=== PATIENT | male | born 1950 | race Caucasian/White ===

== ENCOUNTER 2020-07-17 07:06 | Outpatient (CLI) | payer MEDICARE, OTHER ==
--- NOTE | 2020-07-17 08:03 | ULT ---
Ultrasound pelvis: 07/17/2020 HISTORY: 69-year-old male with abdominal pain FINDINGS: Prevoid bladder volume: 205 mL Post void volume: 225 mL, larger than the prevoid volume. Nonspecific minimal mural thickening. IMPRESSION: Urinary retention
--- NOTE | 2020-07-17 08:06 | ULT ---
ULTRASOUND ABDOMEN: HISTORY: Renal mass on CT. FINDINGS: The liver is enlarged measuring about 21 cm in length. No focal mass or biliary ductal dilatation is seen. The spleen, gallbladder, and right kidney appear normal. There is a 2 cm cyst arising from t he superior pole of the left kidney. The common duct measured 4 mm in diameter. No free fluid is se en. The visualized portions of the aorta and IVC are unremarkable. IMPRESSION: 1. Hepatomegaly. 2. Left renal cyst. POS: OFF
== END 2020-07-17 07:07 | disposition home or self-care (01) ==
LOC: BICULT 07:06
PROVIDERS: ATTEND Specialist
DX: R19.09 Other intra-abdominal and pelvic swelling, mass and lump (principal); R16.0 Hepatomegaly, not elsewhere classified; N28.1 Cyst of kidney, acquired; R33.9 Retention of urine, unspecified
CPT/HCPCS: 76856; 93975

== ENCOUNTER 2023-07-01 09:33 | Inpatient (IN) | payer MEDICARE ==
[2023-07-01] MEDS ORDERED: Nitroglycerin 2% Ointment 1 INCH/1 GM Packet ONE (10:15)
[2023-07-01 10:19] LABS: #Eosinphils 0.1 thou/uL (0.0-0.7); #Monocytes 0.6 thou/uL (0.11-0.59); #Neutrophils 3.6 thou/uL (1.40-6.50); %Basophils 0.4 % (0.0-1.0); %Eosinophils 1.7 % (0.0-10.0); %Lymphocytes 18.5 % (21.0-51.0); %Monocytes 11.1 % (0.0-10.0); %Neutrophils 67.9 % (42.0-75.0); Hematocrit 30.2 % (42.0-52.0); Hemoglobin 9.1 g/dL (14.0-18.0); Mean Corpuscular HGB CONC 30.1 g/dL (32.0-36.0); Mean Corpuscular Hemoglobin 24.9 pg (27.0-31.0); Mean Corpuscular Volume 82.5 fl (78.0-98.0); Mean Platelet Volume 10.3 fL (7.4-10.4); Platelet Count 228 10x3/uL (130-400); RBC Distribution Width 15.2 % (11.5-14.5); Red Blood Cell (RBC) Count 3.66 mill/uL (4.70-6.10); White Blood Cell (WBC) Count 5.2 10x3/uL (4.8-10.8)
[2023-07-01 10:44] LABS: ALT (SGPT) 49 U/L (8-55); AST (SGOT) 72 U/L (5-34); Albumin 2.9 g/dL (3.4-4.8); Alkaline Phosphatase 79 U/L (40-110); Anion Gap 9 mmol/L (10-20); BUN (Urea Nitrogen) 13 mg/dL (8.4-25.7); Bilirubin, Total 0.3 mg/dL (0.2-1.2); Calc. Creatinine Clearance 0 mL/min (70-130); Calcium 8.2 mg/dL (7.8-10.44); Carbon Dioxide 26 mmol/L (23-31); Chloride 107 mmol/L (98-107); Estimated GFR 87; Globulin 3.5 g/dL (2.4-3.5); Glucose 162 mg/dL (83-110); Potassium 3.4 mmol/L (3.5-5.1); Protein, Total 6.4 g/dL (5.8-8.1); Sodium 139 mmol/L (136-145)
[2023-07-01] MEDS ORDERED: Furosemide 40 MG/4 ML VIAL ONE (11:00)
[2023-07-01] MEDS ORDERED: Iopamidol-370 76% 500 ML MDV (1 ML CHARGE) ONE (11:10)
[2023-07-01] MEDS ORDERED: Ondansetron PF 4 MG/2 ML Vial IVP PRN (13:15)
[2023-07-01] MEDS ORDERED: Acetaminophen 325 MG TAB PO PRN (13:15)
[2023-07-01] MEDS ORDERED: Ondansetron ODT 4 MG TAB SL PRN (13:15)
[2023-07-01 13:56] VITALS: BMI 39.9
[2023-07-01] MEDS ORDERED: Zolpidem Tartrate 5 MG TAB PO PRN (14:03)
[2023-07-01] MEDS ORDERED: Senokot S 8.6-50 MG TAB PO PRN (14:03)
[2023-07-01] MEDS ORDERED: Furosemide 40 MG/4 ML VIAL SLOW IVP SCH ×2 (14:10→17:15)
[2023-07-01] MEDS: Potassium Chloride 20 MEQ TAB PO SCH (15:17)
[2023-07-01] MEDS: Carvedilol 6.25 MG TAB PO SCH (15:18)
[2023-07-01] MEDS: metFORMIN 500 MG TAB PO SCH (15:18)
[2023-07-01 15:52] LABS: Critical Call Chem Troponin I RESULT DECREASING; Troponin I 0.253 ng/mL (< 0.028)
[2023-07-01] MEDS ORDERED: Spironolactone 25 MG TAB PO SCH (17:15)
[2023-07-01 18:54] LABS: Troponin I 0.178 ng/mL (< 0.028)
[2023-07-01] MEDS: Rosuvastatin 20 MG TAB PO SCH (21:28)
[2023-07-01] MEDS: Tamsulosin HCl 0.4 MG CAP PO SCH (21:28)
[2023-07-02 04:47] LABS: #Eosinphils 0.1 thou/uL (0.0-0.7); #Monocytes 0.6 thou/uL (0.11-0.59); #Neutrophils 2.6 thou/uL (1.40-6.50); %Basophils 0.5 % (0.0-1.0); %Eosinophils 2.1 % (0.0-10.0); %Lymphocytes 24.7 % (21.0-51.0); %Neutrophils 59.5 % (42.0-75.0); Hematocrit 27.2 % (42.0-52.0); Hemoglobin 7.8 g/dL (14.0-18.0); Mean Corpuscular HGB CONC 28.7 g/dL (32.0-36.0); Mean Corpuscular Hemoglobin 24.5 pg (27.0-31.0); Mean Platelet Volume 10.1 fL (7.4-10.4); Platelet Count 213 10x3/uL (130-400); RBC Distribution Width 15.2 % (11.5-14.5); Red Blood Cell (RBC) Count 3.18 mill/uL (4.70-6.10); White Blood Cell (WBC) Count 4.4 10x3/uL (4.8-10.8)
[2023-07-02 04:56] LABS: Mean Corpuscular Volume 85.5 fl (78.0-98.0)
[2023-07-02 04:57] LABS: Hemoglobin A1c 7.7 % (4.0-6.0)
[2023-07-02 05:13] LABS: Anion Gap 13 mmol/L (10-20); BUN (Urea Nitrogen) 16 mg/dL (8.4-25.7); Calc. Creatinine Clearance 135 mL/min (70-130); Calcium 8.3 mg/dL (7.8-10.44); Carbon Dioxide 26 mmol/L (23-31); Cardiac Risk 4.4 (Less than 4.5); Chloride 106 mmol/L (98-107); Cholesterol 120 mg/dl (< 200 Desired); Estimated GFR 75; Glucose 163 mg/dL (83-110); HDL Cholesterol 27 mg/dL (>60 Neg Risk); Iron 39 ug/dL (65-175); Iron Binding Capacity, Total 403 mcg/dL (261-462); LDL Cholesterol, Calculated 50 mg/dL; Potassium 3.5 mmol/L (3.5-5.1); Sodium 141 mmol/L (136-145); Triglycerides 216 mg/dL (Less than 150)
[2023-07-02 05:32] LABS: Ferritin 14.82 ng/mL (22-322); Thyroid Stimulating Hormone 3.1045 uIU/mL (0.35-4.94)
[2023-07-02] MEDS ORDERED: Furosemide 40 MG/4 ML VIAL SLOW IVP SCH ×2 (06:00→08:05)
[2023-07-02] MEDS ORDERED: Spironolactone 25 MG TAB PO SCH (08:00)
[2023-07-02] MEDS ORDERED: Carvedilol 6.25 MG TAB PO SCH (08:04)
[2023-07-02] MEDS ORDERED: Furosemide 100 MG/10 ML VIAL FS SCH (08:15)
[2023-07-02] MEDS ORDERED: Pioglitazone HCl 45 MG TAB PO SCH (09:00)
[2023-07-02] MEDS ORDERED: Lisinopril 20 MG TAB PO SCH ×2 (09:00→21:00)
[2023-07-02] MEDS: metFORMIN 500 MG TAB PO SCH ×2 (09:36→17:45)
[2023-07-02] MEDS: Carvedilol 25 MG TAB PO SCH ×2 (09:37→17:45)
[2023-07-02] MEDS: Empagliflozin 10 MG TAB PO SCH (09:37)
[2023-07-02] MEDS: Potassium Chloride 20 MEQ TAB PO SCH ×2 (09:37→17:45)
[2023-07-02] MEDS: Aspirin 81 mg Enteric Coated Tablet PO SCH (09:37)
[2023-07-02] MEDS: Carvedilol 6.25 MG TAB PO SCH (09:47)
[2023-07-02] MEDS ORDERED: cloNIDine 0.1 MG TAB PO SCH (11:45)
[2023-07-02] MEDS: Furosemide 100 MG/10 ML VIAL FS SCH (13:22)
[2023-07-02] MEDS ORDERED: Sacubitril 24MG/Valsartan 26 MG TAB PO SCH (21:00)
[2023-07-02] MEDS: Tamsulosin HCl 0.4 MG CAP PO SCH (21:22)
[2023-07-02] MEDS: Rosuvastatin 20 MG TAB PO SCH (21:22)
[2023-07-02] MEDS: cloNIDine 0.1 MG TAB PO SCH (21:23)
[2023-07-03] MEDS: Furosemide 100 MG/10 ML VIAL FS SCH ×2 (05:25→14:29)
[2023-07-03 05:42] LABS: #Eosinphils 0.1 thou/uL (0.0-0.7); #Monocytes 0.6 thou/uL (0.11-0.59); #Neutrophils 2.6 thou/uL (1.40-6.50); %Basophils 0.4 % (0.0-1.0); %Eosinophils 2.4 % (0.0-10.0); %Lymphocytes 26.3 % (21.0-51.0); %Monocytes 14.2 % (0.0-10.0); %Neutrophils 56.5 % (42.0-75.0); Hemoglobin 8.4 g/dL (14.0-18.0); Mean Corpuscular Hemoglobin 24.3 pg (27.0-31.0); Mean Corpuscular Volume 84.1 fl (78.0-98.0); Mean Platelet Volume 10.3 fL (7.4-10.4); Platelet Count 219 10x3/uL (130-400); RBC Distribution Width 15.2 % (11.5-14.5); Red Blood Cell (RBC) Count 3.45 mill/uL (4.70-6.10); White Blood Cell (WBC) Count 4.5 10x3/uL (4.8-10.8)
[2023-07-03 06:05] LABS: Anion Gap 13 mmol/L (10-20); BUN (Urea Nitrogen) 16 mg/dL (8.4-25.7); Calc. Creatinine Clearance 138 mL/min (70-130); Calcium 8.5 mg/dL (7.8-10.44); Carbon Dioxide 26 mmol/L (23-31); Chloride 103 mmol/L (98-107); Estimated GFR 80; Glucose 157 mg/dL (83-110); Potassium 3.2 mmol/L (3.5-5.1); Sodium 139 mmol/L (136-145)
[2023-07-03] MEDS ORDERED: Metolazone 5 MG TAB PO SCH (08:15)
[2023-07-03] MEDS: Potassium Chloride 20 MEQ TAB PO SCH ×2 (10:22→16:46)
[2023-07-03] MEDS: metFORMIN 500 MG TAB PO SCH ×2 (10:22→16:46)
[2023-07-03] MEDS: Carvedilol 25 MG TAB PO SCH ×2 (10:22→16:46)
[2023-07-03] MEDS: Spironolactone 25 MG TAB PO SCH (10:22)
[2023-07-03] MEDS: Aspirin 81 mg Enteric Coated Tablet PO SCH (10:23)
[2023-07-03] MEDS: cloNIDine 0.1 MG TAB PO SCH ×2 (10:23→21:30)
[2023-07-03] MEDS: Empagliflozin 10 MG TAB PO SCH (10:23)
[2023-07-03] MEDS: Lisinopril 20 MG TAB PO SCH ×2 (10:24→21:30)
[2023-07-03 15:33] LABS: #Eosinphils 0.1 thou/uL (0.0-0.7); #Monocytes 0.5 thou/uL (0.11-0.59); #Neutrophils 2.9 thou/uL (1.40-6.50); %Basophils 0.4 % (0.0-1.0); %Eosinophils 1.7 % (0.0-10.0); %Lymphocytes 23.8 % (21.0-51.0); %Monocytes 11.7 % (0.0-10.0); Hematocrit 29.7 % (42.0-52.0); Hemoglobin 8.7 g/dL (14.0-18.0); Mean Corpuscular HGB CONC 29.3 g/dL (32.0-36.0); Mean Corpuscular Hemoglobin 24.8 pg (27.0-31.0); Mean Corpuscular Volume 84.6 fl (78.0-98.0); Mean Platelet Volume 10.5 fL (7.4-10.4); Platelet Count 210 10x3/uL (130-400); RBC Distribution Width 15.4 % (11.5-14.5); Red Blood Cell (RBC) Count 3.51 mill/uL (4.70-6.10); White Blood Cell (WBC) Count 4.6 10x3/uL (4.8-10.8)
[2023-07-03] MEDS: Rosuvastatin 20 MG TAB PO SCH (21:30)
[2023-07-03] MEDS: Tamsulosin HCl 0.4 MG CAP PO SCH (21:30)
[2023-07-04] MEDS: Furosemide 100 MG/10 ML VIAL FS SCH ×2 (05:47→13:20)
[2023-07-04] MEDS: Insulin Regular 300 UNITS/3 ML VIAL SC PRN ×2 (05:58→13:20)
[2023-07-04 06:36] LABS: Anion Gap 10 mmol/L (10-20); BUN (Urea Nitrogen) 21 mg/dL (8.4-25.7); Calc. Creatinine Clearance 118 mL/min (70-130); Calcium 8.9 mg/dL (7.8-10.44); Carbon Dioxide 29 mmol/L (23-31); Chloride 102 mmol/L (98-107); Estimated GFR 67; Glucose 180 mg/dL (83-110); Potassium 3.3 mmol/L (3.5-5.1); Sodium 138 mmol/L (136-145)
[2023-07-04] MEDS: Lisinopril 20 MG TAB PO SCH ×2 (09:35→21:01)
[2023-07-04] MEDS: Potassium Chloride 20 MEQ TAB PO SCH ×2 (09:36→18:01)
[2023-07-04] MEDS: Spironolactone 25 MG TAB PO SCH (09:36)
[2023-07-04] MEDS: metFORMIN 500 MG TAB PO SCH ×2 (09:36→18:01)
[2023-07-04] MEDS: cloNIDine 0.1 MG TAB PO SCH ×2 (09:37→21:02)
[2023-07-04] MEDS: Empagliflozin 10 MG TAB PO SCH (09:38)
[2023-07-04] MEDS: Aspirin 81 mg Enteric Coated Tablet PO SCH (09:38)
[2023-07-04] MEDS: Carvedilol 25 MG TAB PO SCH ×2 (09:38→18:02)
[2023-07-04] MEDS: Rosuvastatin 20 MG TAB PO SCH (21:01)
[2023-07-04] MEDS: Tamsulosin HCl 0.4 MG CAP PO SCH (21:02)
[2023-07-05 05:03] LABS: #Eosinphils 0.1 thou/uL (0.0-0.7); #Monocytes 0.7 thou/uL (0.11-0.59); %Basophils 0.6 % (0.0-1.0); %Eosinophils 1.9 % (0.0-10.0); %Lymphocytes 27.5 % (21.0-51.0); %Monocytes 13.1 % (0.0-10.0); %Neutrophils 56.5 % (42.0-75.0); Hematocrit 28.8 % (42.0-52.0); Hemoglobin 8.4 g/dL (14.0-18.0); Mean Corpuscular HGB CONC 29.2 g/dL (32.0-36.0); Mean Corpuscular Hemoglobin 24.6 pg (27.0-31.0); Mean Corpuscular Volume 84.5 fl (78.0-98.0); Platelet Count 217 10x3/uL (130-400); RBC Distribution Width 15.5 % (11.5-14.5); Red Blood Cell (RBC) Count 3.41 mill/uL (4.70-6.10); White Blood Cell (WBC) Count 5.3 10x3/uL (4.8-10.8)
[2023-07-05] MEDS: Furosemide 100 MG/10 ML VIAL FS SCH (05:30)
[2023-07-05 05:36] LABS: Anion Gap 14 mmol/L (10-20); BUN (Urea Nitrogen) 26 mg/dL (8.4-25.7); Calc. Creatinine Clearance 98 mL/min (70-130); Calcium 8.9 mg/dL (7.8-10.44); Carbon Dioxide 29 mmol/L (23-31); Chloride 99 mmol/L (98-107); Estimated GFR 55; Glucose 192 mg/dL (83-110); Potassium 3.7 mmol/L (3.5-5.1); Sodium 138 mmol/L (136-145)
[2023-07-05 06:03] VITALS: TEMP 97.5
[2023-07-05] MEDS: Insulin Regular 300 UNITS/3 ML VIAL SC PRN ×2 (06:52→13:28)
[2023-07-05] MEDS ORDERED: Furosemide 40 MG TAB PO SCH (07:30)
[2023-07-05] MEDS ORDERED: Lisinopril 20 MG TAB PO SCH (09:00)
[2023-07-05] MEDS: Carvedilol 25 MG TAB PO SCH (09:45)
[2023-07-05] MEDS: metFORMIN 500 MG TAB PO SCH (09:45)
[2023-07-05] MEDS: Spironolactone 25 MG TAB PO SCH (09:45)
[2023-07-05] MEDS: Potassium Chloride 20 MEQ TAB PO SCH (09:46)
[2023-07-05] MEDS: Aspirin 81 mg Enteric Coated Tablet PO SCH (09:48)
[2023-07-05] MEDS: Empagliflozin 10 MG TAB PO SCH (09:48)
[2023-07-05] MEDS: cloNIDine 0.1 MG TAB PO SCH (09:48)
[2023-07-05 12:45] VITALS: BP 148/67
== END 2023-07-05 14:16 | disposition home or self-care (01) | DRG 280 ==
LOC: ERS 09:33 → 2NO 11:32
PROVIDERS: ADMIT Specialist; ATTEND Specialist
DX: I11.0 Hypertensive heart disease with heart failure (principal); I50.33 Acute on chronic diastolic (congestive) heart failure; I21.A1 Myocardial infarction type 2; I25.10 Atherosclerotic heart disease of native coronary artery without angina pectoris; E11.9 Type 2 diabetes mellitus without complications; E66.01 Morbid (severe) obesity due to excess calories; D64.9 Anemia, unspecified; E78.5 Hyperlipidemia, unspecified; I42.9 Cardiomyopathy, unspecified; I50.9 Heart failure, unspecified; Z95.5 Presence of coronary angioplasty implant and graft; Z98.890 Other specified postprocedural states; I25.2 Old myocardial infarction
CPT/HCPCS: 36415; 36416; 71045; 71275; 76870; 80048; 80053; 80061; 82728; 83036; 83540; 83550; 83880; 84443; 84484; 85025; 85379; 93005; 93306; 93976; 96372; 96374; J1650; J1815; J1940; Q9967

== ENCOUNTER 2023-08-01 09:19 | Emergency (ER) | payer MEDICARE ==
[2023-08-01 09:59] LABS: #Eosinphils 0.2 thou/uL (0.0-0.7); #Monocytes 0.7 thou/uL (0.11-0.59); #Neutrophils 4.7 thou/uL (1.40-6.50); %Basophils 0.1 % (0.0-1.0); %Eosinophils 2.6 % (0.0-10.0); %Lymphocytes 19.1 % (21.0-51.0); %Monocytes 9.7 % (0.0-10.0); %Neutrophils 68.2 % (42.0-75.0); Hematocrit 28.7 % (42.0-52.0); Hemoglobin 8.5 g/dL (14.0-18.0); Mean Corpuscular HGB CONC 29.6 g/dL (32.0-36.0); Mean Corpuscular Hemoglobin 24.8 pg (27.0-31.0); Mean Corpuscular Volume 83.7 fl (78.0-98.0); Mean Platelet Volume 10.2 fL (7.4-10.4); Platelet Count 214 10x3/uL (130-400); RBC Distribution Width 17.7 % (11.5-14.5); Red Blood Cell (RBC) Count 3.43 mill/uL (4.70-6.10); White Blood Cell (WBC) Count 6.8 10x3/uL (4.8-10.8)
[2023-08-01 10:26] LABS: ALT (SGPT) 57 U/L (8-55); AST (SGOT) 47 U/L (5-34); Albumin 3.8 g/dL (3.4-4.8); Alkaline Phosphatase 86 U/L (40-110); Anion Gap 15 mmol/L (10-20); BUN (Urea Nitrogen) 40 mg/dL (8.4-25.7); Bilirubin, Total 0.2 mg/dL (0.2-1.2); Calc. Creatinine Clearance 0 mL/min (70-130); Calcium 9.9 mg/dL (7.8-10.44); Carbon Dioxide 22 mmol/L (23-31); Chloride 103 mmol/L (98-107); Estimated GFR 39; Globulin 3.6 g/dL (2.4-3.5); Glucose 230 mg/dL (83-110); Magnesium 1.9 mg/dL (1.6-2.6); Potassium 5.6 mmol/L (3.5-5.1); Protein, Total 7.4 g/dL (5.8-8.1); Sodium 134 mmol/L (136-145)
== END 2023-08-01 12:21 | disposition home or self-care (01) ==
LOC: ERS 09:19
DX: N17.9 Acute kidney failure, unspecified (principal); E87.5 Hyperkalemia; E11.9 Type 2 diabetes mellitus without complications; E78.5 Hyperlipidemia, unspecified; I11.0 Hypertensive heart disease with heart failure; I50.9 Heart failure, unspecified; I25.10 Atherosclerotic heart disease of native coronary artery without angina pectoris; Z79.84 Long term (current) use of oral hypoglycemic drugs; Z79.82 Long term (current) use of aspirin; Z79.899 Other long term (current) drug therapy
CPT/HCPCS: 36415; 80053; 83735; 85025; 93005; 96360

== ENCOUNTER 2024-10-16 12:46 | Emergency (ER) | payer MEDICARE, OTHER | END 2024-10-16 14:56 | disposition home or self-care (01) | LOC: ERS 12:46 | DX: S92.514A Nondisplaced fracture of proximal phalanx of right lesser toe(s), initial encounter for closed fracture (principal); E11.9 Type 2 diabetes mellitus without complications; I11.0 Hypertensive heart disease with heart failure; I50.9 Heart failure, unspecified; I25.10 Atherosclerotic heart disease of native coronary artery without angina pectoris; I25.2 Old myocardial infarction; Z95.5 Presence of coronary angioplasty implant and graft; W22.8XXA Striking against or struck by other objects, initial encounter | CPT/HCPCS: 99283 ==

== ENCOUNTER 2024-10-24 15:38 | Inpatient (IN) | payer MEDICARE, OTHER ==
[2024-10-24 16:34] LABS: #Basophils Less than 0.03 10x3/uL (0.0-0.2); %Basophils 0.5 % (0.0-1.0); %Eosinophils 1.2 % (0.0-10.0); %Lymphocytes 21.4 % (21.0-51.0); %Monocytes 8.2 % (0.0-10.0); %Neutrophils 68.5 % (42.0-75.0); Hematocrit 36.9 % (42.0-52.0); Hemoglobin 12.3 g/dL (14.0-18.0); Mean Corpuscular HGB CONC 33.3 g/dL (32.0-36.0); Mean Corpuscular Hemoglobin 28.9 pg (27.0-31.0); Mean Corpuscular Volume 86.8 fL (78.0-98.0); Mean Platelet Volume 9.7 fL (7.4-10.4); Platelet Count 162 10x3/uL (130-400); RBC Distribution Width 14.4 % (11.5-14.5); Red Blood Cell (RBC) Count 4.25 mill/uL (4.70-6.10)
[2024-10-24 16:59] LABS: ALT (SGPT) 24 U/L (8-55); AST (SGOT) 31 U/L (5-34); Albumin 2.8 g/dL (3.4-4.8); Alkaline Phosphatase 91 U/L (40-110); Anion Gap 12 mmol/L (10-20); BUN (Urea Nitrogen) 20 mg/dL (8.4-25.7); Bilirubin, Total 0.3 mg/dL (0.2-1.2); Calc. Creatinine Clearance 0 mL/min (70-130); Calcium 9.2 mg/dL (7.8-10.44); Carbon Dioxide 22 mmol/L (23-31); Chloride 107 mmol/L (98-107); Estimated GFR 49; Globulin 3.5 g/dL (2.4-3.5); Glucose 302 mg/dL (83-110); Potassium 3.9 mmol/L (3.5-5.1); Protein, Total 6.3 g/dL (5.8-8.1); Sodium 137 mmol/L (136-145)
[2024-10-24 17:05] LABS: Troponin I Less than 0.010 ng/mL (< 0.028)
[2024-10-24] MEDS ORDERED: hydrALAZINE 20 MG/ML VIAL ONE (17:36)
[2024-10-24] MEDS ORDERED: Insulin Regular, Human 100 UNIT/ML 10 ML VIAL ONE (18:04)
[2024-10-24] MEDS ORDERED: cloNIDine 0.1 MG TAB ONE (20:00)
[2024-10-24] MEDS ORDERED: Ondansetron PF 4 MG/2 ML Vial ONE (20:00)
[2024-10-24 21:43] VITALS: BMI 33.0
[2024-10-24 22:18] LABS: Troponin I 0.012 ng/mL (< 0.028)
[2024-10-24] MEDS ORDERED: Calcium Carbonate 500 MG ChewTAB PO PRN (22:47)
[2024-10-24] MEDS ORDERED: niCARdipine 25 MG/10 ML SDV ONE (22:52)
[2024-10-24] MEDS: niCARdipine 25 MG in Sodium Chloride 0.9% 250 ML 250 ML IVPB SCH (23:05)
[2024-10-24] MEDS ORDERED: Dextrose 50% Abboject 50 ML SYRINGE SLOW IVP PRN (23:35)
[2024-10-24] MEDS ORDERED: Insulin Lispro 100 UNIT/ML 10 ML VIAL SC PRN (23:35)
[2024-10-24] MEDS ORDERED: Dextrose 5% in Water 1,000 ML IV PRN (23:35)
[2024-10-24] MEDS ORDERED: Glucagon 1 MG/ML KIT IM PRN (23:35)
[2024-10-25] MEDS: Acetaminophen 325 MG TAB PO SCH
[2024-10-25 01:27] LABS: Troponin I 0.026 ng/mL (< 0.028)
[2024-10-25] MEDS ORDERED: niCARdipine 25 MG/10 ML SDV ONE ×5 (01:34→14:51)
[2024-10-25 04:35] LABS: #Basophils Less than 0.03 10x3/uL (0.0-0.2); #Eosinophils Less than 0.03 10x3/uL (0.0-0.7); %Basophils 0.3 % (0.0-1.0); %Eosinophils 0.2 % (0.0-10.0); %Lymphocytes 12.3 % (21.0-51.0); %Monocytes 6.3 % (0.0-10.0); %Neutrophils 80.6 % (42.0-75.0); Hematocrit 37.8 % (42.0-52.0); Hemoglobin 12.6 g/dL (14.0-18.0); Mean Corpuscular HGB CONC 33.3 g/dL (32.0-36.0); Mean Corpuscular Hemoglobin 28.8 pg (27.0-31.0); Mean Corpuscular Volume 86.3 fL (78.0-98.0); Mean Platelet Volume 10.4 fL (7.4-10.4); Platelet Count 174 10x3/uL (130-400); RBC Distribution Width 14.4 % (11.5-14.5); Red Blood Cell (RBC) Count 4.38 mill/uL (4.70-6.10)
[2024-10-25 04:53] LABS: Anion Gap 14 mmol/L (10-20); BUN (Urea Nitrogen) 20 mg/dL (8.4-25.7); Calc. Creatinine Clearance 69 mL/min (70-130); Carbon Dioxide 23 mmol/L (23-31); Chloride 109 mmol/L (98-107); Estimated GFR 43; Glucose 191 mg/dL (83-110); Potassium 3.8 mmol/L (3.5-5.1); Sodium 142 mmol/L (136-145)
[2024-10-25] MEDS ORDERED: Ondansetron PF 4 MG/2 ML Vial ONE (05:35)
[2024-10-25] MEDS: Ondansetron PF 4 MG/2 ML Vial IVP PRN (05:42)
[2024-10-25] MEDS ORDERED: Acetaminophen 325 MG TAB ONE ×3 (05:52→18:39)
[2024-10-25] MEDS: Acetaminophen 650 MG Suppository PR PRN (06:08)
[2024-10-25] MEDS ORDERED: Lisinopril 20 MG TAB ONE (09:35)
[2024-10-25] MEDS ORDERED: Clopidogrel Bisulfate 75 MG TAB ONE ×2 (09:35→09:36)
[2024-10-25] MEDS ORDERED: cloNIDine 0.1 MG TAB ONE (09:35)
[2024-10-25] MEDS ORDERED: Famotidine 20 MG TAB ONE (09:35)
[2024-10-25] MEDS ORDERED: Carvedilol 25 MG TAB ONE ×2 (09:35→17:06)
[2024-10-25] MEDS ORDERED: Famotidine/PF 20 mg/2ml Vial ONE (09:36)
[2024-10-25] MEDS: Carvedilol 25 MG TAB PO SCH (09:39)
[2024-10-25] MEDS: cloNIDine 0.2 MG TAB PO SCH (09:40)
[2024-10-25] MEDS: Clopidogrel Bisulfate 75 MG TAB PO SCH (09:41)
[2024-10-25] MEDS: Famotidine 20 MG TAB PO SCH (09:41)
[2024-10-25] MEDS: Famotidine/PF 20 mg/2ml Vial SLOW IVP SCH (09:41)
[2024-10-25] MEDS: Lisinopril 20 MG TAB PO SCH (09:41)
[2024-10-25] MEDS: Insulin Glargine 30 UNITS/0.3 ML VIAL SC SCH (11:00)
[2024-10-25] MEDS ORDERED: Morphine 2 MG/ML VIAL ONE (11:23)
[2024-10-25] MEDS: Morphine 2 MG/ML VIAL SLOW IVP SCH (11:37)
[2024-10-25] MEDS ORDERED: Morphine 2 MG/ML VIAL SLOW IVP PRN (11:46)
[2024-10-25] MEDS ORDERED: Promethazine HCl 25 MG in Sodium Chloride 0.9% 50 ML IVPB PRN (11:47)
[2024-10-25] MEDS: Spironolactone 25 MG TAB PO SCH (13:06)
[2024-10-25] MEDS: Dapagliflozin Propanediol 10 MG TAB PO SCH (13:06)
[2024-10-25] MEDS ORDERED: Insulin Lispro 100 UNIT/ML 10 ML VIAL ONE (13:14)
[2024-10-25] MEDS: Insulin Lispro 100 UNIT/ML 10 ML VIAL SC PRN (13:18)
[2024-10-25 19:11] LABS: Bacteria/HPF None Seen HPF (None Seen); Bilirubin Negative (Negative); Blood, Urine 1+ (Negative); CAUTI Indications for Culture Dysuria,urgency,freq; Clarity Turbid (Clear); Glucose, Urine (Dipstick) >=1000 mg/dL (Negative); Ketone, Urine Negative (Negative); Leukocyte Negative Leu/uL (Negative); Nitrite Negative (Negative); Protein, Urine (Dipstick) 600 mg/dL (Neg-Trace); RBC/HPF 0-3 HPF (0-3); Specific Gravity, Urine 1.028 (1.002-1.036); Squamous Epithelial 0-3 HPF (0-3); Urobilinogen Normal mg/dL (Less than 2); WBC/HPF 0-3 HPF (0-3)
[2024-10-25 19:13] LABS: Urine Culture Reflex No No
[2024-10-25] MEDS: Rosuvastatin 20 MG TAB PO SCH (22:56)
[2024-10-25] MEDS: Pantoprazole DR 40 MG TAB PO SCH (22:56)
[2024-10-26 04:17] LABS: #Basophils Less than 0.03 10x3/uL (0.0-0.2); %Basophils 0.2 % (0.0-1.0); %Lymphocytes 23.1 % (21.0-51.0); %Monocytes 8.5 % (0.0-10.0); %Neutrophils 66.9 % (42.0-75.0); Hematocrit 31.9 % (42.0-52.0); Hemoglobin 10.7 g/dL (14.0-18.0); Mean Corpuscular HGB CONC 33.5 g/dL (32.0-36.0); Mean Corpuscular Hemoglobin 29.3 pg (27.0-31.0); Mean Corpuscular Volume 87.4 fL (78.0-98.0); Mean Platelet Volume 9.6 fL (7.4-10.4); Platelet Count 144 10x3/uL (130-400); RBC Distribution Width 14.5 % (11.5-14.5); Red Blood Cell (RBC) Count 3.65 mill/uL (4.70-6.10)
[2024-10-26 04:57] LABS: Anion Gap 12 mmol/L (10-20); BUN (Urea Nitrogen) 26 mg/dL (8.4-25.7); Calc. Creatinine Clearance 72 mL/min (70-130); Carbon Dioxide 23 mmol/L (23-31); Chloride 109 mmol/L (98-107); Estimated GFR 45; Glucose 96 mg/dL (83-110); Potassium 3.8 mmol/L (3.5-5.1); Sodium 140 mmol/L (136-145)
[2024-10-26] MEDS: Furosemide 20 MG (2 mL) VIAL SLOW IVP SCH (06:22)
[2024-10-26] MEDS: Lisinopril 20 MG TAB PO SCH (09:20)
[2024-10-27 04:43] LABS: #Basophils Less than 0.03 10x3/uL (0.0-0.2); %Basophils 0.2 % (0.0-1.0); %Eosinophils 0.9 % (0.0-10.0); %Monocytes 10.4 % (0.0-10.0); %Neutrophils 65.9 % (42.0-75.0); Hematocrit 32.8 % (42.0-52.0); Hemoglobin 10.8 g/dL (14.0-18.0); Mean Corpuscular HGB CONC 32.9 g/dL (32.0-36.0); Mean Corpuscular Hemoglobin 28.8 pg (27.0-31.0); Mean Corpuscular Volume 87.5 fL (78.0-98.0); Platelet Count 142 10x3/uL (130-400); RBC Distribution Width 14.4 % (11.5-14.5); Red Blood Cell (RBC) Count 3.75 mill/uL (4.70-6.10)
[2024-10-27 05:08] LABS: Anion Gap 13 mmol/L (10-20); BUN (Urea Nitrogen) 27 mg/dL (8.4-25.7); Calc. Creatinine Clearance 73 mL/min (70-130); Carbon Dioxide 24 mmol/L (23-31); Chloride 105 mmol/L (98-107); Estimated GFR 45; Glucose 119 mg/dL (83-110); Potassium 3.6 mmol/L (3.5-5.1); Sodium 138 mmol/L (136-145)
[2024-10-27] MEDS: Ondansetron ODT 4 MG TAB PO PRN (12:37)
[2024-10-27] MEDS: NIFEdipine XL 30 MG ER.TAB PO SCH (12:37)
[2024-10-27] MEDS: hydrALAZINE 20 MG/ML VIAL SLOW IVP PRN (17:13)
[2024-10-27] MEDS: Lisinopril 20 MG TAB PO SCH (20:43)
[2024-10-28 04:37] LABS: #Basophils Less than 0.03 10x3/uL (0.0-0.2); %Basophils 0.4 % (0.0-1.0); %Eosinophils 1.1 % (0.0-10.0); %Lymphocytes 26.3 % (21.0-51.0); %Monocytes 11.7 % (0.0-10.0); %Neutrophils 60.3 % (42.0-75.0); Hematocrit 34.3 % (42.0-52.0); Hemoglobin 11.4 g/dL (14.0-18.0); Mean Corpuscular HGB CONC 33.2 g/dL (32.0-36.0); Mean Corpuscular Hemoglobin 29.4 pg (27.0-31.0); Mean Corpuscular Volume 88.4 fL (78.0-98.0); Mean Platelet Volume 10.2 fL (7.4-10.4); Platelet Count 157 10x3/uL (130-400); RBC Distribution Width 14.4 % (11.5-14.5); Red Blood Cell (RBC) Count 3.88 mill/uL (4.70-6.10)
[2024-10-28 05:16] LABS: ALT (SGPT) 22 U/L (8-55); AST (SGOT) 31 U/L (5-34); Albumin 2.7 g/dL (3.4-4.8); Alkaline Phosphatase 54 U/L (40-110); Anion Gap 13 mmol/L (10-20); BUN (Urea Nitrogen) 25 mg/dL (8.4-25.7); Bilirubin, Total 0.3 mg/dL (0.2-1.2); Calc. Creatinine Clearance 70 mL/min (70-130); Carbon Dioxide 22 mmol/L (23-31); Chloride 106 mmol/L (98-107); Estimated GFR 44; Globulin 3.1 g/dL (2.4-3.5); Glucose 70 mg/dL (83-110); Potassium 3.6 mmol/L (3.5-5.1); Protein, Total 5.8 g/dL (5.8-8.1); Sodium 137 mmol/L (136-145)
[2024-10-28] MEDS: NIFEdipine XL 30 MG ER.TAB PO SCH (08:41)
[2024-10-28 13:06] VITALS: BP 163/78; TEMP 97.3
== END 2024-10-28 16:27 | disposition home or self-care (01) | DRG 305 ==
LOC: ERS 15:38 → ERHOLD 20:54 → OBSVTOIN 22:47 → 2NO 10-25 22:01
PROVIDERS: ADMIT Student in an Organized Health Care Education/Training Program; ATTEND Internal Medicine
DX: I16.1 Hypertensive emergency (principal); I50.32 Chronic diastolic (congestive) heart failure; E78.5 Hyperlipidemia, unspecified; I25.10 Atherosclerotic heart disease of native coronary artery without angina pectoris; I25.2 Old myocardial infarction; Z79.899 Other long term (current) drug therapy; Z79.4 Long term (current) use of insulin; Z98.890 Other specified postprocedural states; N18.30 Chronic kidney disease, stage 3 unspecified; I13.0 Hypertensive heart and chronic kidney disease with heart failure and stage 1 through stage 4 chronic kidney disease, or unspecified chronic kidney disease; E11.22 Type 2 diabetes mellitus with diabetic chronic kidney disease; Z87.891 Personal history of nicotine dependence; E66.01 Morbid (severe) obesity due to excess calories; Z68.32 Body mass index [BMI] 32.0-32.9, adult
CPT/HCPCS: 36415; 36416; 71045; 80048; 80053; 81001; 83880; 84484; 85025; 93005; 93798; 96374; 96375; J0360; J1815; J1940; J2272; J2405; J3490; J7050; Q0162